=== PATIENT | male | born 1990 | race Caucasian/White ===

== ENCOUNTER 2021-02-20 21:16 | Observation (INO) | payer BC ==
[~2021-02-20] VITALS: Ht 188 cm; Wt 109.3 kg
[2021-02-20 22:16] LABS: HEMOGLOBIN 18.1 gm/dl (14.0-17.5); RED BLOOD COUNT 5.87 M/UL (4.20-5.50)
[2021-02-21] MEDS ORDERED: ZYRTEC10 M3 PO (03:24)
[2021-02-21] MEDS ORDERED: ZESTRIL5 MG PO (03:24)
[2021-02-21 09:26] LABS: RED BLOOD COUNT 5.22 M/UL (4.20-5.50); WHITE BLOOD COUNT 7.8 K/UL (4.5-11.0)
[2021-02-21 09:56] LABS: BUN/CREATININE RATIO 21 (0-10)
== END 2021-02-21 16:10 | disposition home or self-care (01) ==
LOC: ER1 21:16 → CDU 02-21 01:39 → M/S 02-21 01:39
PROVIDERS: Physician Assistant; ADMIT Internal Medicine
DX: N17.9 Acute kidney failure, unspecified (principal); M62.82 Rhabdomyolysis; E86.0 Dehydration; E87.1 Hypo-osmolality and hyponatremia; I10 Essential (primary) hypertension; G47.33 Obstructive sleep apnea (adult) (pediatric); D72.829 Elevated white blood cell count, unspecified; R86.1 Abnormal level of hormones in specimens from male genital organs; Z20.822 Contact with and (suspected) exposure to COVID-19; Z79.899 Other long term (current) drug therapy
CPT/HCPCS: 36415; 80053; 81001; 82550; 82553; 83874; 84484; 85025; 85027; 85652; 86140; 87086; 93005; 99285; G0378; J1644; U0002